=== PATIENT | female | born 1970 | race Caucasian/White ===

== ENCOUNTER → 2019-05-28 18:01 | Outpatient (CLI) | payer OTHER, SELFPAY ==
--- NOTE | ~2019-05-28 | MM_ITS ---
EXAMINATION: MM screening mandi BI w tamiko HISTORY: Screening mammogram TECHNIQUE: Craniocaudal and mediolateral oblique 3-D tomosynthesis images were obtained and synthetic 2-D images were generated. CAD analysis was submitted and interpreted. COMPARISON: 11/27/2013 BREAST PARENCHYMAL COMPOSITION: There are scattered areas of fibroglandular density. FINDINGS: There is no evidence of suspicious mass, calcification, or architectural distortion to sugg est malignancy in either breast. There has been no suspicious interval change. IMPRESSION: 1. No mammographic evidence of malignancy. 2. Recommend routine screening mammography in one year. BI-RADS Category 1: Negative Reviewed, dictated and finalized at location A.
== END ==
PROVIDERS: Visit Provider Student in an Organized Health Care Education/Training Program
DX: Z12.31 Encounter for screening mammogram for malignant neoplasm of breast (principal)
CPT/HCPCS: 77063; 77067

== ENCOUNTER → 2020-09-15 17:53 | Outpatient (CLI) | payer BC, SELFPAY ==
--- NOTE | ~2020-09-15 | MM_ITS ---
EXAMINATION: MM screening mandi BI w tamiko HISTORY: Screening mammogram, family history of breast cancer in her sister. TECHNIQUE: Craniocaudal and mediolateral oblique 3-D tomosynthesis images were obtained and synthetic 2-D images were generated. CAD analysis was submitted and interpreted. COMPARISON: 05/28/2019, 11/27/2013 BREAST PARENCHYMAL COMPOSITION: There are scattered areas of fibroglandular density. FINDINGS: There is no evidence of suspicious mass, calcification, or architectural distortion to sugg est malignancy in either breast. There has been no suspicious interval change. IMPRESSION: 1. No mammographic evidence of malignancy. 2. Recommend routine screening mammography in one year. BI-RADS Category 1: Negative Reviewed, dictated and finalized at location A.
== END ==
PROVIDERS: Visit Provider Student in an Organized Health Care Education/Training Program
DX: Z12.31 Encounter for screening mammogram for malignant neoplasm of breast (principal)
CPT/HCPCS: 77063; 77067

== ENCOUNTER 2021-01-19 09:38 | Outpatient (CLI) | payer BC, SELFPAY ==
[2021-01-19 10:45] LABS: Hepatitis B Surface Antigen Negative (Negative)
[2021-01-19 11:02] LABS: Hepatitis C Virus Antibody Negative (Negative)
[2021-01-19 14:23] LABS: HIV 1/2 Ab P24 Ag Result Negative (Negative)
[2021-01-20 07:12] LABS: Rapid Plasma Reagin Non-Reactive (NonReactive)
== END 2021-01-19 09:39 | disposition home or self-care (01) ==
LOC: ANHLAB 09:41
PROVIDERS: PCP Family Medicine; Visit Provider Student in an Organized Health Care Education/Training Program
DX: Z20.2 Contact with and (suspected) exposure to infections with a predominantly sexual mode of transmission (principal)
CPT/HCPCS: 36415; 86592; 86703; 86803; 87340; G0432

== ENCOUNTER → 2021-10-08 17:00 | Outpatient (CLI) | payer BC, SELFPAY ==
--- NOTE | ~2021-10-08 | MM_ITS ---
EXAMINATION: MM screening mandi BI w tamiko HISTORY: Screening TECHNIQUE: Craniocaudal and mediolateral oblique 3-D tomosynthesis images were obtained and synthetic 2-D images were generated. CAD analysis was submitted and interpreted. COMPARISON: Comparison to multiple prior studies sequentially, with oldest reviewed study dated 11/27. BREAST PARENCHYMAL COMPOSITION: There are scattered areas of fibroglandular density. FINDINGS: There is no evidence of suspicious mass, calcification, or architectural distortion to sugg est malignancy in either breast. There has been no suspicious interval change. IMPRESSION: 1. No mammographic evidence of malignancy. 2. Recommend routine screening mammography in one year. BI-RADS Category 1: Negative Reviewed, dictated and finalized at location A.
== END ==
PROVIDERS: PCP Family Medicine; Visit Provider Student in an Organized Health Care Education/Training Program
DX: Z12.31 Encounter for screening mammogram for malignant neoplasm of breast (principal)
CPT/HCPCS: 77063; 77067

== ENCOUNTER 2021-12-21 00:04 | Day surgery (SDC) | payer BC, SELFPAY ==
[2021-12-03 13:32] VITALS: BMI 36.6
[2021-12-21 06:38] VITALS: BP 156/71; PULSE 68; RESP 17; TEMP 36.4; O2SAT 100
[2021-12-21] MEDS: LACTATED RINGERS 1,000 ML 150 ML IV CONT (06:51)
--- NOTE | 2021-12-21 07:24 | WPDANESEPPF ---
Anes - Initial Pre Proc Eval Procedure: Operation Date: 12/21/21 07:30 Proposed Procedures p Screening Colonoscopy - Alin Guan MD Date/Time: 12/21/21 07:24 Surgeon: Alin Guan MD Pre Op Diagnosis: neoplasm screening Patient Data Age: 51 Gender: F Height: 1.68 m Weight: 105.7 kg Last Vital Signs Temp 97.5 F L 12/21/21 06:38 Pulse 68 12/21/21 06:38 Resp 17 12/21/21 06:38 BP 156/71 H 12/21/21 06:38 Pulse Ox 100 12/21/21 06:38 O2 Del Method Room Air 12/21/21 06:38 Allergies Allergy/AdvReac Type Severity Reaction Status Date / Time aspirin Allergy Unknown Rash Verified 12/21/21 06:24 latex Allergy Unknown Rash Verified 12/21/21 06:24 Sulfa (Sulfonamide Allergy Unknown Vomiting Verified 12/21/21 06:24 Antibiotics) Home Medications Medication Instructions Recorded Confirmed Type metoprolol succinate 25 mg 25 mg PO DAILY 08/27/19 12/03/21 History tablet,extended release 24 hr valacyclovir 500 mg tablet 500 mg PO .COMPLEX #30 tabs 08/27/19 12/03/21 Rx (Valtrex) hydrochlorothiazide 12.5 mg tablet 12.5 mg PO DAILY 12/03/21 12/03/21 History Patient hx anesthesia problems: none Family hx anesthesia problems: none Results Review: All pre-operative results and documents have been reviewed as part of the pre-operative evaluation. [facility] Past Medical History Medical History Anemia Hypertension Migraines (normal spontaneous vaginal delivery) Surgical History Surgical History H/O exploratory laparotomy History of laminectomy Hx of removal of cyst [place] teeth removed Family History Family History Mother Family history of osteoporosis Hypertension Father Hypertension Cerebrovascular accident, Onset Age: 57 Family history of coronary artery disease Sibling Hypertension Carcinoma of colon Family history of malignant neoplasm of breast, Onset Age: 57 Social History Social History Smoking status: Never smoker Second hand tobacco smoke exposure: No Alcohol intake: current Drinks per week: 1 Substance use type: does not use Living arrangements: with family Spiritual care concerns: No Anes - Eval Final PreProcedure Day of Procedure 12/21/21 07:24 Patient weight: obese Heart: regular rate and rhythm Lungs: clear to auscultation Airway: Mallampati scale class II Neurological: alert and oriented Last oral intake: >/= 8 hours ASA classification: III Emergent: no Anesthetic plan: proceed Anesthesia type and monitoring: general GIVS and standard monitoring Results Review: All pre-operative results and documents have been reviewed as part of the pre-operative evaluation. Informed Consent: The patient's anesthetic plan and its attendant risks and benefits were discussed with the patient/family/POA. Questions were solicited and answers provided to the satisfaction of the patient/family/POA.
--- NOTE | 2021-12-21 07:25 | PM.HPGS ---
History of Present Illness History of Present Illness Consent: Risks, benefits, and alternatives have been discussed and questions answered. Patient agrees to proceed with procedure. Chief complaint: neoplasm screening Narrative: Pilar Ivy is a 51 year old female here for colonoscopy, last one about 5 years ago. Brother had colon cancer Review of Systems Constitutional: Constitutional: Denies headache(s) and Denies weakness Eyes: Eyes: Denies blurry vision ENT: Reports Normal hearing present, Denies headache(s) and Denies neck pain Cardiovascular: Cardiovascular: Denies chest pain and Denies dyspnea Respiratory: Respiratory: Denies dyspnea Gastrointestinal: Gastrointestinal: Reports no additional gastrointestinal complaints Genitourinary: Genitourinary: Denies dysuria Musculoskeletal: Musculoskeletal: Denies neck pain Integumentary/Breasts: Skin/Breast: Denies dry skin Neurologic: Reports Normal hearing present, Denies headache(s) and Denies weakness Psychiatric: Psychiatric: Denies anxiety Endocrine: Endocrine: Denies change in body appearance Hematologic/Lymphatic: Hematologic/Lymphatic: Denies easy bleeding Allergic/Immunologic: Allergic/Immunologic: Denies urticaria PMFSH Past Medical History Medical History (Updated 12/21/21 @ 07:26 by Alin Guan MD) Anemia Family history of colon cancer Hypertension Migraines (normal spontaneous vaginal delivery) Surgical History Surgical History H/O exploratory laparotomy History of laminectomy Hx of removal of cyst [place] teeth removed Family History Family History Mother Family history of osteoporosis Hypertension Father Hypertension Cerebrovascular accident, Onset Age: 57 Family history of coronary artery disease Sibling Hypertension Carcinoma of colon Family history of malignant neoplasm of breast, Onset Age: 57 Social History Social History Smoking status: Never smoker Second hand tobacco smoke exposure: No Alcohol intake: current Drinks per week: 1 Substance use type: does not use Living arrangements: with family Spiritual care concerns: No Meds Home Medications and Allergies Home Medications Medication Instructions Recorded Confirmed Type metoprolol succinate 25 mg 25 mg PO DAILY 08/27/19 12/03/21 History tablet,extended release 24 hr valacyclovir 500 mg tablet 500 mg PO .COMPLEX #30 tabs 08/27/19 12/03/21 Rx (Valtrex) hydrochlorothiazide 12.5 mg tablet 12.5 mg PO DAILY 12/03/21 12/03/21 History Allergies Allergy/AdvReac Type Severity Reaction Status Date / Time aspirin Allergy Unknown Rash Verified 12/21/21 06:24 latex Allergy Unknown Rash Verified 12/21/21 06:24 Sulfa (Sulfonamide Allergy Unknown Vomiting Verified 12/21/21 06:24 Antibiotics) Vital Signs Vital Signs - 24 hr 12/21/21 06:38 Temperature 97.5 F L Pulse Rate 68 Respiratory Rate 17 Blood Pressure 156/71 H Pulse Oximetry 100 Oxygen Delivery Room Air Exam Const: General: comfortable and no acute distress HENMT: Face/Nose/Sinus: Normal nares present Eyes: General: appearance normal, both eyes and all related structures Neck: Neck: no JVD Resp: Auscultation: clear to auscultation bilaterally Cardio: Rate: regular rate Rhythm: regular rhythm GI: Inspection: non-distended GI Palp: Yes Soft to palpation Skin: General skin exam: normal color Neuro: General: gait normal Speech: normal speech Extrem: General: normal to inspection Psych: Mental Status: mental status grossly normal Assessment and Plan Assessment and plan (1) Family history of colon cancer: Code(s): Z80.0 - Family history of malignant neoplasm of digestive organs Status: Acute Assessment and Plan: colonoscopy
[2021-12-21 08:07] VITALS: BP 134/79; PULSE 77; RESP 24; O2SAT 95
[2021-12-21 08:17] VITALS: BP 113/65; PULSE 65; RESP 19; O2SAT 97
== END 2021-12-21 08:38 | disposition home or self-care (01) ==
PROVIDERS: PCP Family Medicine; Visit Provider Internal Medicine Gastroenterology
PROC: 0DJD8ZZ Inspection of Lower Intestinal Tract, Via Natural or Artificial Opening Endoscopic (ICD-10-PCS; CPT 45378; principal; 2021-12-21 07:30)
DX: Z12.11 Encounter for screening for malignant neoplasm of colon (principal); K62.1 Rectal polyp; Z80.0 Family history of malignant neoplasm of digestive organs; K57.30 Diverticulosis of large intestine without perforation or abscess without bleeding; D64.9 Anemia, unspecified; I10 Essential (primary) hypertension; E66.9 Obesity, unspecified; Z68.37 Body mass index [BMI] 37.0-37.9, adult
CPT/HCPCS: 45380; 88305; J2704; J7120

== ENCOUNTER 2024-05-10 12:37 | Outpatient (CLI) | payer BC, SELFPAY | END 2024-05-10 12:38 | disposition home or self-care (01) | LOC: MICIMG 12:39 | PROVIDERS: PCP Family Medicine; Visit Provider Obstetrics & Gynecology | DX: Z12.31 Encounter for screening mammogram for malignant neoplasm of breast (principal) | CPT/HCPCS: 77063; 77067 ==

== ENCOUNTER 2024-08-28 15:47 | Outpatient (CLI) | payer BC, SELFPAY ==
--- NOTE | ~2024-08-28 | XR_ITS ---
HISTORY: M25.552 - Pain in left hip COMPARISON: None TECHNIQUE: 2 views of the left hip were performed. FINDINGS: No acute fracture or dislocation is identified. Superior lateral sclerosis of the femoral acetabular joint space is present consistent with osteoarth ritis. Mineralization is age-appropriate. IMPRESSION: Degenerative disease without acute fracture. Reviewed, dictated and finalized at location A.
== END 2024-08-28 15:48 | disposition home or self-care (01) ==
LOC: MICIMG 15:47
PROVIDERS: PCP Family Medicine; Visit Provider Family Medicine
DX: M16.12 Unilateral primary osteoarthritis, left hip (principal)
CPT/HCPCS: 73502

== ENCOUNTER 2025-01-20 09:45 | Outpatient (RCR) | payer BC, SELFPAY ==
--- NOTE | 2024-12-31 16:29 | OPREHPOC ---
Outpatient Therapy Plan of Care This is a Multidisciplinary Plan of Care that may contain components documented by all disciplines (PT, OT, and ST.) PT Problem 1 PT Problem #1 Knowledge Deficit PT Goal 1 Goal / Goal Update *independent with HEP * correct body mechanics with lifting from floor Target Visit 10 PT Problem 2 PT Problem #2 Pain PT Goal 1 Goal / Goal Update 1* pt report pain rating at worst of 4/10 2* radicular pain into bilateral lateral hips at worstl 3* report standing/walking tolerance of 45 minutes Target Visit 10 PT Problem 3 PT Problem #3 Impaired Flexibility PT Goal 1 Goal / Goal Update increase flexibility of hip to improve position and decrease pull/strain on lumbar spine hamstring length with supine SLR to 75' 1* R 2* L anterior hip/quad length with prone knee flexion to 125' 3* R 4* L Target Visit 10 PT Problem 4 PT Problem #4 Impaired Strength PT Goal 1 Goal / Goal Update 1*increase strength of R and L hip extension to 4+ /5 to improve position and support to spine single leg standing x 20 seconds with good stability 2* R 3* L Target Visit 10
--- NOTE | 2024-12-31 16:29 | PTOPEVAL1 ---
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 She has issues with chronic hip and back pain, with lumbar laminectomy in 2002. Recently has had numbness in both anterior thighs. LE functional scale rating of 55% limitation in activity level. Pain is limiting her standing, walking and stair use. With the evaluation: she has poor standing posture with R hip elevated and wt shift onto L LE ; pain is increased in back and hip, with supine SLR/hamstring stretch; weakness of bilateral hip extension and decreased ROM of bilateral hip extension hamstrings; Skilled PT services are indicated for modalities to decrease pain, therapeutic exercises in water and on land, to increase trunk and hip flexibility and strength with education for HEP and body mechanics/posture. Plan of Care Interventions Aquatic Therapy,Electrical Stimulation,Hot Pack/ Cold Pack,Manual Therapy,Mechanical Traction,Neuro Re-education,Patient/Caregiver Education, Therapeutic Activities,Therapeutic Exercise, Ultrasound,Other Other Interventions taping PT Services Indicated Yes Treatment Frequency and 1-2x/wk for 10 visits Duration These treatments will address the objective and functional deficits as defined above. The patient will be advanced safely and appropriately in order for the patient to progress towards his/her prior level of function. Additional exercises will be introduced and as well as a comprehensive home exercise program upon discharge, if needed, ?to ensure carryover of functional gains achieved in the clinic. This treatment plan has been reviewed and agreement upon by the patient.
--- NOTE | 2025-01-27 09:41 | OPREHPOC ---
Outpatient Therapy Plan of Care This is a Multidisciplinary Plan of Care that may contain components documented by all disciplines (PT, OT, and ST.) PT Problem 1 PT Problem #1 Knowledge Deficit PT Goal 1 Goal / Goal Update *independent with HEP * correct body mechanics with lifting from floor 01-27-25 d/c pt called and canceled PT goals were not addressed Target Visit 10 PT Problem 2 PT Problem #2 Pain PT Goal 1 Goal / Goal Update 1* pt report pain rating at worst of 4/10 2* radicular pain into bilateral lateral hips at worstl 3* report standing/walking tolerance of 45 minutes 01-27-25 d/c pt called and canceled PT goals were not addressed Target Visit 10 PT Problem 3 PT Problem #3 Impaired Flexibility PT Goal 1 Goal / Goal Update increase flexibility of hip to improve position and decrease pull/strain on lumbar spine hamstring length with supine SLR to 75' 1* R 2* L anterior hip/quad length with prone knee flexion to 125' 3* R 4* L 01-27-25 d/c pt called and canceled PT goals were not addressed Target Visit 10 PT Problem 4 PT Problem #4 Impaired Strength PT Goal 1 Goal / Goal Update 1*increase strength of R and L hip extension to 4+ /5 to improve position and support to spine single leg standing x 20 seconds with good stability 2* R 3* L 01-27-25 d/c pt called and canceled PT goals were not addressed Target Visit 10
--- NOTE | 2025-01-27 09:42 | PTOPDC ---
Assessment and note entered by Juliana Riley, PT Assessment Status Discharge - Pt Not Present ICD-10 Condition Codes (PT) Radiculopathy, lumbar region M54.16,Pain in right hip M25.551 Onset few years Subjective Information pt called and canceled all appointments. Assessment PT Clinical Summary Pilar received the PT evaluation and 3 treatment sessions. She called on January 24 and canceled PT, going to have an MRI and wants to stop therapy. Discharge PT per pt request. The goals were not addressed. Plan of Care PT Services Indicated No
== END 2025-01-27 11:30 | disposition home or self-care (01) ==
LOC: ANHPT 09:45
PROVIDERS: PCP Family Medicine; Visit Provider Physician Assistant Medical
DX: M54.16 Radiculopathy, lumbar region (principal); M25.551 Pain in right hip; M25.552 Pain in left hip
CPT/HCPCS: 97110; 97113; 97140; 97161; 97530